=== PATIENT | female | born 1980 | race African-American/Black ===

== ENCOUNTER 2021-12-26 03:46 | Emergency (ER) | payer MEDICAID, OTHER ==
[~2021-12-26] VITALS: Ht 167.6 cm; Wt 85.0 kg
[2021-12-26 03:58] VITALS: BP 107/72
[2021-12-26] MEDS ORDERED: BACITRACIN ZINC OINT UDPKT TOP ONE (06:00)
[2021-12-26] MEDS ORDERED: TETANUS, DIPHTHERIA, PERTUSSIS VAC/PF 0.5ML (>10YR OLD) IM ONE (06:00)
[2021-12-26] MEDS ORDERED: LIDOCAINE HCL/EPINEPHRINE 1%-EPI 1:100,000 20 ML VIAL INFIL ONE (06:00)
[2021-12-26] MEDS ORDERED: HYDROCODONE/ACETAMINOPHEN 5/325MG TABLET PO ONE (06:00)
[2021-12-26] MEDS ORDERED: HYDROCODONE/ACETAMINOPHEN 5/325MG TABLET PO SCH (08:00)
[2021-12-26] MEDS ORDERED: BACITRACIN ZINC OINT UDPKT TOP SCH (08:00)
[2021-12-26] MEDS ORDERED: LIDOCAINE HCL/EPINEPHRINE 1%-EPI 1:100,000 20 ML VIAL INFIL SCH (08:00)
[2021-12-26] MEDS ORDERED: IBUP-2029 MT (08:56)
[2021-12-26] MEDS ORDERED: CEPH500C2 MT (08:56)
== END 2021-12-26 09:34 | disposition home or self-care (01) ==
LOC: ER 03:46
DX: S81.811A Laceration without foreign body, right lower leg, initial encounter (principal); X58.XXXA Exposure to other specified factors, initial encounter; Y93.89 Activity, other specified; Y92.89 Other specified places as the place of occurrence of the external cause; Y99.8 Other external cause status; F20.9 Schizophrenia, unspecified
CPT/HCPCS: 90471; 90715; 99283; J3490

== ENCOUNTER 2021-12-31 02:57 | Emergency (ER) | payer OTHER ==
[~2021-12-31] VITALS: Ht 162.6 cm; Wt 69.0 kg
[~2021-12-31 02:57] MED LIST: CEPH500C2 MT; IBUP-2029 MT
[2021-12-31] MEDS ORDERED: IBUP-2029 MT (04:59)
[2021-12-31] MEDS ORDERED: HYDROCODONE/ACETAMINOPHEN 10/325MG TABLET PO ONE (05:00)
[2021-12-31 05:33] VITALS: BP 116/78
== END 2021-12-31 05:35 | disposition home or self-care (01) ==
LOC: ER 02:57
DX: M25.462 Effusion, left knee (principal); Z98.890 Other specified postprocedural states
CPT/HCPCS: 73562; 73590; 81025; 99284

== ENCOUNTER 2022-04-20 23:11 | Emergency (ER) | payer MEDICAID, OTHER ==
[~2022-04-20] VITALS: Ht 165.1 cm; Wt 72.6 kg
[2022-04-21 06:07] LABS: BASOPHILS % 0.8 % (0.0-2.0); EOSINOPHILS % 2.1 % (0.0-5.0); HEMATOCRIT. 38.6 % (36.0-48.0); HEMOGLOBIN. 12.9 g/dL (12.0-16.0); LYMPHOCYTES % 32.8 % (20.0-50.0); MEAN CORPUSCULAR HEMOGLOBIN 29.9 pg (28.0-32.0); MEAN CORPUSCULAR VOLUME 89.3 fL (81.0-99.0); MEAN PLATELET VOLUME 8.3 fl (7.4-10.4); MONOCYTES % 7.8 % (2.0-8.0); NEUTROPHILS % 56.5 % (40.0-76.0); PLATELET 233 x1000/uL (130-400); RED BLOOD CELL COUNT 4.32 mill/uL (4.2-5.4); RED CELL DISTRIBUTION WIDTH 14.5 % (11.6-14.6)
[2022-04-21 06:18] LABS: CHLORIDE 108 mEq/L (98-107)
[2022-04-21 06:24] LABS: HCG SCREEN NEGATIVE
[2022-04-21 06:28] LABS: CLARITY URINE CLOUDY (CLEAR); COLOR URINE ORANGE (YELLOW); KETONES URINE NEGATIVE (NEGATIVE); LEUKOCYTE ESTERASE URINE 1+ (NEGATIVE); NITRITE URINE POSITIVE (NEGATIVE); OCCULT BLOOD URINE 3+ (NEGATIVE); PH URINE 5.5 (4.5-8.0); PROTEIN URINE 2+ (NEGATIVE); SPECIFIC GRAVITY URINE 1.022 (1.005-1.030)
[2022-04-21 06:33] LABS: ETHANOL BLOOD < 10 mg/dL
[2022-04-21] MEDS ORDERED: NITR100C PO (06:36)
[2022-04-21] MEDS ORDERED: IBUP-2030 PO (06:36)
[2022-04-21 06:47] LABS: *AMPHETAMINES SCREEN URINE NEGATIVE (NEGATIVE); *BARBITURATES SCREEN URINE NEGATIVE (NEGATIVE); *BENZODIAZEPINES SCREEN URINE NEGATIVE (NEGATIVE); *COCAINE SCREEN URINE NEGATIVE (NEGATIVE); METHADONE URINE SCREEN NEGATIVE (NEGATIVE); OPIATES URINE SCREEN NEGATIVE (NEGATIVE); PHENCYCLIDINE URINE SCREEN NEGATIVE (NEGATIVE)
[2022-04-21 06:51] LABS: CANNABINOID URINE SCREEN PRESUMTIVE POSITIVE (NEGATIVE)
[2022-04-21 07:01] VITALS: BP 114/75
== END 2022-04-21 07:02 | disposition home or self-care (01) ==
LOC: ER 23:11
DX: N93.9 Abnormal uterine and vaginal bleeding, unspecified (principal); N39.0 Urinary tract infection, site not specified
CPT/HCPCS: 36415; 80053; 80305; 80320; 81003; 81025; 84703; 85025; 99283; G0480

== ENCOUNTER 2022-04-26 09:20 | Emergency (ER) | payer MEDICAID, OTHER ==
[~2022-04-26] VITALS: Ht 172.7 cm; Wt 82.0 kg
[~2022-04-26 09:20] MED LIST changes: +IBUP-2030 PO; +NITR100C PO
[2022-04-26 09:25] VITALS: BP 129/78
[2022-04-26 10:18] LABS: CLARITY URINE CLEAR (CLEAR); COLOR URINE YELLOW (YELLOW); KETONES URINE NEGATIVE (NEGATIVE); LEUKOCYTE ESTERASE URINE NEGATIVE (NEGATIVE); NITRITE URINE NEGATIVE (NEGATIVE); OCCULT BLOOD URINE NEGATIVE (NEGATIVE); PH URINE 5.5 (4.5-8.0); PROTEIN URINE NEGATIVE (NEGATIVE); SPECIFIC GRAVITY URINE 1.005 (1.005-1.030); UROBILINOGEN URINE 0.2 E.U./dL (0.2-1.0)
[2022-04-26] MEDS ORDERED: METR-167 MT (10:26)
[2022-04-26] MEDS ORDERED: DOXY-326 MT (10:26)
[2022-04-26] MEDS ORDERED: CEFTRIAXONE SODIUM 500 MG/VIAL IM ONE (10:30)
[2022-04-26] MEDS ORDERED: LIDOCAINE HCL 1% 10 MG/ML 10ML VIAL INJ ONE (10:30)
[2022-04-26] MEDS ORDERED: LIDOCAINE HCL 1% 20ML VIAL (Pyxis) INJ INFIL ONE (10:30)
[2022-04-26] MEDS ORDERED: DOXYCYCLINE HYCLATE 100MG CAPSULE PO ONE (10:30)
[2022-04-28 04:07] LABS: NEISSERIA GONORRHOEAE NAA Negative (Negative)
== END 2022-04-26 10:52 | disposition home or self-care (01) ==
LOC: ER 09:20
DX: N89.8 Other specified noninflammatory disorders of vagina (principal); A64 Unspecified sexually transmitted disease; Z98.51 Tubal ligation status; Z79.899 Other long term (current) drug therapy
CPT/HCPCS: 81003; 81025; 87491; 87591; 96372; 99283; J0696

== ENCOUNTER 2022-05-18 19:01 | Emergency (ER) | payer OTHER ==
[~2022-05-18] VITALS: Ht 175.3 cm; Wt 82.0 kg
[~2022-05-18 19:01] MED LIST changes: +DOXY-326 MT; +METR-167 MT
[2022-05-18 19:47] VITALS: BP 135/71
[2022-05-19] MEDS ORDERED: ACETAMINOPHEN 325MG TABLET PO ONE (01:00)
[2022-05-19 01:15] LABS: CLARITY URINE CLOUDY (CLEAR); COLOR URINE YELLOW (YELLOW); KETONES URINE TRACE (NEGATIVE); LEUKOCYTE ESTERASE URINE NEGATIVE (NEGATIVE); NITRITE URINE POSITIVE (NEGATIVE); OCCULT BLOOD URINE TRACE (NEGATIVE); PH URINE 5.5 (4.5-8.0); PROTEIN URINE NEGATIVE (NEGATIVE); SPECIFIC GRAVITY URINE 1.026 (1.005-1.030); UROBILINOGEN URINE 0.2 E.U./dL (0.2-1.0)
[2022-05-19] MEDS ORDERED: CIPR-263 MT (02:21)
[2022-05-21 04:09] LABS: NEISSERIA GONORRHOEAE NAA Negative (Negative)
== END 2022-05-19 02:45 | disposition home or self-care (01) ==
LOC: ER 19:01
DX: N39.0 Urinary tract infection, site not specified (principal); F20.9 Schizophrenia, unspecified; Z98.51 Tubal ligation status
CPT/HCPCS: 81003; 87491; 87591; 99283

== ENCOUNTER 2022-05-29 17:35 | Emergency (ER) | payer OTHER ==
[~2022-05-29] VITALS: Ht 175.3 cm; Wt 82.0 kg
[~2022-05-29 17:35] MED LIST changes: +CIPR-263 MT
[2022-05-29 17:48] VITALS: BP 117/78
[2022-05-29] MEDS: ACETAMINOPHEN 325MG TABLET PO ONE (20:00)
== END 2022-05-29 20:20 | disposition home or self-care (01) ==
LOC: ER 17:35
DX: S89.92XA Unspecified injury of left lower leg, initial encounter (principal); X58.XXXA Exposure to other specified factors, initial encounter; Y93.89 Activity, other specified; Y92.89 Other specified places as the place of occurrence of the external cause; Y99.8 Other external cause status; E11.9 Type 2 diabetes mellitus without complications; I10 Essential (primary) hypertension; F20.9 Schizophrenia, unspecified; Z79.899 Other long term (current) drug therapy
CPT/HCPCS: 99282

== ENCOUNTER 2022-06-12 08:19 | Emergency (ER) | payer OTHER ==
[~2022-06-12] VITALS: Ht 175.3 cm; Wt 82.0 kg
[2022-06-12 08:27] VITALS: BP 111/70
[2022-06-12] MEDS ORDERED: DOXY-244 MT (09:33)
[2022-06-12] MEDS ORDERED: CEFTRIAXONE SODIUM 500 MG/VIAL IM ONE (09:45)
[2022-06-12] MEDS ORDERED: ACETAMINOPHEN 325MG TABLET PO ONE (09:45)
== END 2022-06-12 10:27 | disposition home or self-care (01) ==
LOC: ER 08:19
DX: S89.92XA Unspecified injury of left lower leg, initial encounter (principal); X58.XXXA Exposure to other specified factors, initial encounter; Y93.89 Activity, other specified; Y92.89 Other specified places as the place of occurrence of the external cause; Y99.8 Other external cause status; E11.9 Type 2 diabetes mellitus without complications; I10 Essential (primary) hypertension; F20.9 Schizophrenia, unspecified; Z87.440 Personal history of urinary (tract) infections; Z98.51 Tubal ligation status; Z79.899 Other long term (current) drug therapy
CPT/HCPCS: 81025; 96372; 99283; J0696

== ENCOUNTER 2022-06-23 03:19 | Emergency (ER) | payer OTHER ==
[~2022-06-23] VITALS: Ht 170.2 cm; Wt 69.3 kg
[~2022-06-23 03:19] MED LIST changes: +DOXY-244 MT
[2022-06-23 03:28] VITALS: BP 116/80
[2022-06-23] MEDS ORDERED: ACETAMINOPHEN 325MG TABLET PO ONE (04:15)
[2022-06-23 05:22] LABS: CLARITY URINE CLOUDY (CLEAR); COLOR URINE YELLOW (YELLOW); KETONES URINE NEGATIVE (NEGATIVE); LEUKOCYTE ESTERASE URINE NEGATIVE (NEGATIVE); NITRITE URINE POSITIVE (NEGATIVE); OCCULT BLOOD URINE 1+ (NEGATIVE); PH URINE 5.5 (4.5-8.0); PROTEIN URINE NEGATIVE (NEGATIVE); SPECIFIC GRAVITY URINE 1.026 (1.005-1.030); UROBILINOGEN URINE 0.2 E.U./dL (0.2-1.0)
[2022-06-23] MEDS ORDERED: TOPUD MT (05:32)
[2022-06-23] MEDS ORDERED: CEFP200T13 MT (05:35)
== END 2022-06-23 08:36 | disposition home or self-care (01) ==
LOC: ER 03:19
DX: Z00.00 Encounter for general adult medical examination without abnormal findings (principal); R30.0 Dysuria; E11.9 Type 2 diabetes mellitus without complications; I10 Essential (primary) hypertension; F20.9 Schizophrenia, unspecified; Z98.51 Tubal ligation status; Z87.440 Personal history of urinary (tract) infections
CPT/HCPCS: 81003; 99283

== ENCOUNTER 2022-06-25 04:12 | Emergency (ER) | payer OTHER ==
[~2022-06-25] VITALS: Ht 170.2 cm; Wt 83.2 kg
[~2022-06-25 04:12] MED LIST changes: +CEFP200T13 MT; +TOPUD MT
[2022-06-25 04:42] VITALS: BP 102/65
== END 2022-06-25 13:12 | disposition left against medical advice (07) ==
LOC: ER 04:12
DX: Z53.21 Procedure and treatment not carried out due to patient leaving prior to being seen by health care provider (principal); Z98.51 Tubal ligation status

== ENCOUNTER 2022-07-07 01:22 | Emergency (ER) | payer OTHER ==
[~2022-07-07] VITALS: Ht 175.3 cm; Wt 86.0 kg
[2022-07-07] MEDS ORDERED: ACETAMINOPHEN 325MG TABLET PO ONE (04:15)
[2022-07-07 04:40] LABS: CLARITY URINE CLEAR (CLEAR); COLOR URINE YELLOW (YELLOW); KETONES URINE NEGATIVE (NEGATIVE); LEUKOCYTE ESTERASE URINE NEGATIVE (NEGATIVE); NITRITE URINE NEGATIVE (NEGATIVE); OCCULT BLOOD URINE NEGATIVE (NEGATIVE); PROTEIN URINE NEGATIVE (NEGATIVE); SPECIFIC GRAVITY URINE 1.022 (1.005-1.030); UROBILINOGEN URINE 0.2 E.U./dL (0.2-1.0)
[2022-07-07 05:45] VITALS: BP 110/75
[2022-07-07] MEDS ORDERED: TOPUD MT (05:47)
== END 2022-07-07 05:58 | disposition home or self-care (01) ==
LOC: ER 01:22
DX: M79.671 Pain in right foot (principal); F20.9 Schizophrenia, unspecified; Z98.51 Tubal ligation status
CPT/HCPCS: 81003; 81025; 99283

== ENCOUNTER 2022-07-10 06:09 | Emergency (ER) | payer OTHER ==
[~2022-07-10] VITALS: Ht 170.2 cm; Wt 83.5 kg
[2022-07-10 06:31] VITALS: BP 112/75
[2022-07-10] MEDS ORDERED: METR-167 PO (07:45)
[2022-07-10] MEDS ORDERED: DOXY100C5 PO (07:45)
[2022-07-10] MEDS ORDERED: CEFTRIAXONE SODIUM 500 MG/VIAL IM ONE (08:00)
[2022-07-10] MEDS ORDERED: LIDOCAINE HCL 1% 20ML VIAL (Pyxis) INJ INFIL ONE (08:00)
[2022-07-10 10:39] LABS: CLARITY URINE CLEAR (CLEAR); COLOR URINE YELLOW (YELLOW); KETONES URINE NEGATIVE (NEGATIVE); LEUKOCYTE ESTERASE URINE NEGATIVE (NEGATIVE); NITRITE URINE NEGATIVE (NEGATIVE); OCCULT BLOOD URINE TRACE (NEGATIVE); PROTEIN URINE NEGATIVE (NEGATIVE); SPECIFIC GRAVITY URINE 1.017 (1.005-1.030); UROBILINOGEN URINE 0.2 E.U./dL (0.2-1.0)
== END 2022-07-10 08:35 | disposition home or self-care (01) ==
LOC: ER 06:09
DX: N89.8 Other specified noninflammatory disorders of vagina (principal); A64 Unspecified sexually transmitted disease; F12.10 Cannabis abuse, uncomplicated; Z98.51 Tubal ligation status; Z79.899 Other long term (current) drug therapy
CPT/HCPCS: 81003; 81025; 87591; 96372; 99283; J0696; J3490

== ENCOUNTER 2022-07-21 01:05 | Emergency (ER) | payer OTHER ==
[~2022-07-21] VITALS: Ht 175.3 cm; Wt 82.8 kg
[~2022-07-21 01:05] MED LIST changes: +DOXY100C5 PO; +METR-167 PO
[2022-07-21] MEDS ORDERED: AZIT250T12 MT (03:02)
[2022-07-21 03:15] VITALS: BP 124/77
== END 2022-07-21 03:16 | disposition home or self-care (01) ==
LOC: ER 01:05
DX: J18.9 Pneumonia, unspecified organism (principal); Z98.51 Tubal ligation status
CPT/HCPCS: 99281; Z7610

== ENCOUNTER 2022-07-30 19:36 | Emergency (ER) | payer OTHER ==
[~2022-07-30] VITALS: Ht 175.3 cm; Wt 75.0 kg
[~2022-07-30 19:36] MED LIST changes: +AZIT250T12 MT
[2022-07-30 19:41] VITALS: BP 126/69
[2022-07-31 01:16] LABS: CLARITY URINE CLOUDY (CLEAR); COLOR URINE YELLOW (YELLOW); KETONES URINE TRACE (NEGATIVE); LEUKOCYTE ESTERASE URINE NEGATIVE (NEGATIVE); NITRITE URINE NEGATIVE (NEGATIVE); OCCULT BLOOD URINE NEGATIVE (NEGATIVE); PROTEIN URINE NEGATIVE (NEGATIVE); SPECIFIC GRAVITY URINE 1.025 (1.005-1.030)
[2022-07-31] MEDS ORDERED: PHEN-910 PO (01:31)
[2022-07-31] MEDS ORDERED: D-ME473S50 PO (01:31)
[2022-07-31] MEDS ORDERED: NAPR-681 PO (01:36)
[2022-08-01] MEDS ORDERED: NITR-87 MT (21:24)
[2022-08-01] MEDS ORDERED: OLAN5TAB6 MT (21:24)
[2022-08-01] MEDS ORDERED: PYR200 MT (21:24)
== END 2022-07-31 01:47 | disposition home or self-care (01) ==
LOC: ER 19:36
DX: J06.9 Acute upper respiratory infection, unspecified (principal); R35.0 Frequency of micturition; Z98.51 Tubal ligation status; F12.10 Cannabis abuse, uncomplicated; Z79.899 Other long term (current) drug therapy
CPT/HCPCS: 81003; 81025; 82962; 99283

== ENCOUNTER 2022-08-01 17:18 | Emergency (ER) | payer OTHER ==
[~2022-08-01] VITALS: Ht 160 cm; Wt 80.0 kg
[~2022-08-01 17:18] MED LIST changes: +D-ME473S50 PO; +NAPR-681 PO; +PHEN-910 PO
[2022-08-01 17:32] VITALS: BP 119/73
[2022-08-01 21:22] LABS: CLARITY URINE CLEAR (CLEAR); COLOR URINE DARK YELLOW (YELLOW); KETONES URINE NEGATIVE (NEGATIVE); LEUKOCYTE ESTERASE URINE TRACE (NEGATIVE); NITRITE URINE POSITIVE (NEGATIVE); OCCULT BLOOD URINE NEGATIVE (NEGATIVE); PH URINE 6.5 (4.5-8.0); PROTEIN URINE NEGATIVE (NEGATIVE); SPECIFIC GRAVITY URINE 1.028 (1.005-1.030)
[2022-08-01] MEDS ORDERED: PYR200 MT (21:24)
[2022-08-01] MEDS ORDERED: OLAN5TAB6 MT (21:24)
[2022-08-01] MEDS ORDERED: NITR-87 MT (21:24)
[2022-08-01 21:40] LABS: *AMPHETAMINES SCREEN URINE NEGATIVE (NEGATIVE); *BARBITURATES SCREEN URINE NEGATIVE (NEGATIVE); *BENZODIAZEPINES SCREEN URINE NEGATIVE (NEGATIVE); *COCAINE SCREEN URINE NEGATIVE (NEGATIVE); METHADONE URINE SCREEN NEGATIVE (NEGATIVE); OPIATES URINE SCREEN NEGATIVE (NEGATIVE); PHENCYCLIDINE URINE SCREEN NEGATIVE (NEGATIVE)
[2022-08-01 22:08] LABS: CANNABINOID URINE SCREEN PRESUMTIVE POSITIVE (NEGATIVE)
== END 2022-08-01 21:43 | disposition home or self-care (01) ==
LOC: ER 20:08
DX: N39.0 Urinary tract infection, site not specified (principal); F20.9 Schizophrenia, unspecified; F12.10 Cannabis abuse, uncomplicated
CPT/HCPCS: 80305; 81003; 81025; 99283

== ENCOUNTER 2022-08-04 20:44 | Emergency (ER) | payer OTHER ==
[~2022-08-04] VITALS: Ht 170.2 cm; Wt 86.4 kg
[~2022-08-04 20:44] MED LIST changes: +NITR-87 MT; +OLAN5TAB6 MT; +PYR200 MT
[2022-08-04 21:19] VITALS: BP 109/60
== END 2022-08-05 03:15 | disposition left against medical advice (07) ==
LOC: ER 20:44
DX: Z53.21 Procedure and treatment not carried out due to patient leaving prior to being seen by health care provider (principal)

== ENCOUNTER 2022-08-06 16:33 | Emergency (ER) | payer OTHER ==
[~2022-08-06] VITALS: Ht 175.3 cm; Wt 82.0 kg
[2022-08-06 16:42] VITALS: BP 106/65
== END 2022-08-07 | disposition left against medical advice (07) ==
LOC: ER 16:33
DX: Z53.21 Procedure and treatment not carried out due to patient leaving prior to being seen by health care provider (principal)

== ENCOUNTER 2022-08-11 19:41 | Emergency (ER) | payer OTHER ==
[~2022-08-11] VITALS: Ht 175.3 cm; Wt 85.8 kg
[~2022-08-11 19:41] MED LIST changes: -DOXY-326 MT; +DOXY-456 MT
[2022-08-11 19:43] VITALS: BP 124/75
[2022-08-11] MEDS ORDERED: LIDOCAINE HCL 1% 20ML VIAL (Pyxis) INJ INFIL ONE (23:45)
[2022-08-11] MEDS ORDERED: CEFTRIAXONE SODIUM 500 MG/VIAL IM ONE (23:45)
[2022-08-12] MEDS ORDERED: METR-167 MT (00:50)
[2022-08-12] MEDS ORDERED: DOXY100C5 MT (00:50)
[2022-08-12] MEDS ORDERED: IBUP-2028 MT (00:50)
[2022-08-12 01:07] LABS: CLARITY URINE CLEAR (CLEAR); COLOR URINE YELLOW (YELLOW); KETONES URINE NEGATIVE (NEGATIVE); LEUKOCYTE ESTERASE URINE NEGATIVE (NEGATIVE); NITRITE URINE NEGATIVE (NEGATIVE); OCCULT BLOOD URINE NEGATIVE (NEGATIVE); PROTEIN URINE NEGATIVE (NEGATIVE); SPECIFIC GRAVITY URINE 1.017 (1.005-1.030); UROBILINOGEN URINE 0.2 E.U./dL (0.2-1.0)
[2022-08-12] MEDS ORDERED: CEFTRIAXONE SODIUM 500 MG/VIAL IM NR (01:30)
== END 2022-08-12 02:35 | disposition home or self-care (01) ==
LOC: ER 19:41
DX: M25.562 Pain in left knee (principal); N89.8 Other specified noninflammatory disorders of vagina; N72 Inflammatory disease of cervix uteri; F20.9 Schizophrenia, unspecified; Z79.899 Other long term (current) drug therapy; F12.10 Cannabis abuse, uncomplicated
CPT/HCPCS: 73562; 73590; 81003; 81025; 87210; 87491; 87591; 96372; 99284; J0696; J3490; Z7610

== ENCOUNTER 2022-08-21 19:40 | Emergency (ER) | payer OTHER ==
[~2022-08-21] VITALS: Ht 175.3 cm; Wt 110.0 kg
[~2022-08-21 19:40] MED LIST changes: +DOXY100C5 MT; +IBUP-2028 MT
[2022-08-22 06:47] VITALS: BP 125/86
== END 2022-08-22 06:53 | disposition home or self-care (01) ==
LOC: ER 19:40
DX: F20.9 Schizophrenia, unspecified (principal); R44.0 Auditory hallucinations; F12.10 Cannabis abuse, uncomplicated
CPT/HCPCS: 99281

== ENCOUNTER 2022-08-21 23:08 | Emergency (ER) | payer OTHER | END 2022-08-22 03:17 | disposition left against medical advice (07) | LOC: ER 23:08 | DX: Z53.21 Procedure and treatment not carried out due to patient leaving prior to being seen by health care provider (principal) | CPT/HCPCS: 99281 ==

== ENCOUNTER 2022-08-25 19:32 | Emergency (ER) | payer OTHER ==
[~2022-08-25] VITALS: Ht 175.3 cm; Wt 85.2 kg
[2022-08-25 20:10] VITALS: BP 107/70
== END 2022-08-26 02:08 | disposition left against medical advice (07) ==
LOC: ER 19:57
DX: R30.0 Dysuria (principal); R31.9 Hematuria, unspecified; F20.9 Schizophrenia, unspecified; F12.10 Cannabis abuse, uncomplicated; Z79.899 Other long term (current) drug therapy
CPT/HCPCS: 99281

== ENCOUNTER 2022-10-10 22:12 | Emergency (ER) | payer OTHER ==
[~2022-10-10] VITALS: Ht 175.3 cm; Wt 87.5 kg
[2022-10-10 22:52] VITALS: BP 129/82
[2022-10-11 04:49] LABS: CLARITY URINE CLOUDY (CLEAR); COLOR URINE YELLOW (YELLOW); KETONES URINE NEGATIVE (NEGATIVE); LEUKOCYTE ESTERASE URINE NEGATIVE (NEGATIVE); NITRITE URINE POSITIVE (NEGATIVE); OCCULT BLOOD URINE NEGATIVE (NEGATIVE); PH URINE 5.5 (4.5-8.0); PROTEIN URINE NEGATIVE (NEGATIVE); SPECIFIC GRAVITY URINE 1.021 (1.005-1.030); UROBILINOGEN URINE 0.2 E.U./dL (0.2-1.0)
[2022-10-11] MEDS ORDERED: CEPH500C2 MT (05:37)
== END 2022-10-11 05:59 | disposition home or self-care (01) ==
LOC: ER 23:05
DX: N39.0 Urinary tract infection, site not specified (principal); F20.9 Schizophrenia, unspecified; F12.10 Cannabis abuse, uncomplicated; Z98.51 Tubal ligation status
CPT/HCPCS: 81003; 81025; 99283

== ENCOUNTER 2022-10-13 12:08 | Emergency (ER) | payer OTHER ==
[~2022-10-13] VITALS: Ht 172.7 cm; Wt 91.0 kg
[2022-10-13 12:16] VITALS: BP 111/71
[2022-10-13] MEDS ORDERED: CEFTRIAXONE SODIUM 500 MG/VIAL IM ONE (12:45)
[2022-10-13] MEDS ORDERED: LIDOCAINE HCL 1% 20ML VIAL (Pyxis) INJ INFIL ONE (12:45)
[2022-10-13 13:05] LABS: CLARITY URINE CLEAR (CLEAR); COLOR URINE YELLOW (YELLOW); KETONES URINE NEGATIVE (NEGATIVE); LEUKOCYTE ESTERASE URINE NEGATIVE (NEGATIVE); NITRITE URINE NEGATIVE (NEGATIVE); OCCULT BLOOD URINE TRACE (NEGATIVE); PROTEIN URINE NEGATIVE (NEGATIVE); SPECIFIC GRAVITY URINE 1.019 (1.005-1.030); UROBILINOGEN URINE 0.2 E.U./dL (0.2-1.0)
[2022-10-13] MEDS ORDERED: DOXY100C5 MT (14:34)
== END 2022-10-13 14:55 | disposition home or self-care (01) ==
LOC: ER 12:08
DX: R30.0 Dysuria (principal); F20.9 Schizophrenia, unspecified; F12.10 Cannabis abuse, uncomplicated; Z98.51 Tubal ligation status
CPT/HCPCS: 81003; 81025; 87210; 96372; 99283; J0696; J3490; Z7610

== ENCOUNTER 2022-10-19 00:20 | Emergency (ER) | payer OTHER ==
[~2022-10-19] VITALS: Ht 167.6 cm; Wt 82.0 kg
[2022-10-19 00:40] VITALS: BP 114/72
[2022-10-19 00:42] LABS: BASOPHILS % 0.5 % (0.0-2.0); EOSINOPHILS % 2.3 % (0.0-5.0); HEMATOCRIT. 35.4 % (36.0-48.0); HEMOGLOBIN. 11.9 g/dL (12.0-16.0); LYMPHOCYTES % 39.2 % (20.0-50.0); MEAN CORPUSCULAR HEMOGLOBIN 29.5 pg (28.0-32.0); MEAN CORPUSCULAR VOLUME 88.2 fL (81.0-99.0); MONOCYTES % 9.1 % (2.0-8.0); NEUTROPHILS % 48.9 % (40.0-76.0); PLATELET 232 x1000/uL (130-400); RED BLOOD CELL COUNT 4.02 mill/uL (4.2-5.4); RED CELL DISTRIBUTION WIDTH 14.3 % (11.6-14.6)
[2022-10-19 00:52] LABS: CLARITY URINE CLEAR (CLEAR); COLOR URINE YELLOW (YELLOW); KETONES URINE NEGATIVE (NEGATIVE); LEUKOCYTE ESTERASE URINE NEGATIVE (NEGATIVE); NITRITE URINE NEGATIVE (NEGATIVE); OCCULT BLOOD URINE TRACE (NEGATIVE); PROTEIN URINE NEGATIVE (NEGATIVE); SPECIFIC GRAVITY URINE 1.004 (1.005-1.030); UROBILINOGEN URINE 0.2 E.U./dL (0.2-1.0)
[2022-10-19 00:55] LABS: CHLORIDE 107 mEq/L (98-107)
== END 2022-10-19 02:00 | disposition home or self-care (01) ==
LOC: ER 00:20
DX: R31.9 Hematuria, unspecified (principal); E11.9 Type 2 diabetes mellitus without complications; F20.9 Schizophrenia, unspecified; F12.90 Cannabis use, unspecified, uncomplicated
CPT/HCPCS: 36415; 80053; 81003; 81025; 85025; 99283

== ENCOUNTER 2022-10-26 17:47 | Emergency (ER) | payer OTHER ==
[~2022-10-26] VITALS: Ht 165.1 cm; Wt 100.0 kg
[2022-10-26 18:11] VITALS: BP 133/74
[2022-10-26] MEDS ORDERED: CEFTRIAXONE SODIUM 500 MG/VIAL IM ONE (22:00)
[2022-10-26] MEDS ORDERED: LIDOCAINE HCL 1% 20ML VIAL (Pyxis) INJ INFIL ONE (22:00)
[2022-10-26] MEDS ORDERED: ACETAMINOPHEN 325MG TABLET PO ONE (22:00)
[2022-10-26 22:13] LABS: CLARITY URINE CLEAR (CLEAR); COLOR URINE YELLOW (YELLOW); KETONES URINE NEGATIVE (NEGATIVE); LEUKOCYTE ESTERASE URINE NEGATIVE (NEGATIVE); NITRITE URINE NEGATIVE (NEGATIVE); OCCULT BLOOD URINE TRACE (NEGATIVE); PH URINE 5.5 (4.5-8.0); PROTEIN URINE NEGATIVE (NEGATIVE); SPECIFIC GRAVITY URINE 1.021 (1.005-1.030); UROBILINOGEN URINE 0.2 E.U./dL (0.2-1.0)
[2022-10-27] MEDS ORDERED: CEFTRIAXONE SODIUM 500 MG/VIAL IM NR (00:15)
[2022-10-27] MEDS ORDERED: LIDOCAINE HCL 1% 20ML VIAL (Pyxis) INJ INFIL NR (00:15)
[2022-10-27] MEDS ORDERED: CEFTRIAXONE SODIUM 500 MG/VIAL IM ONE (00:15)
[2022-10-27] MEDS ORDERED: ACETAMINOPHEN 325MG TABLET PO NR (00:15)
[2022-10-27] MEDS ORDERED: IBUP-2028 MT (00:21)
[2022-10-27] MEDS ORDERED: NITR-87 MT (00:21)
[2022-10-27] MEDS ORDERED: DOXY100C5 MT (00:21)
[2022-10-29 04:08] LABS: NEISSERIA GONORRHOEAE NAA Negative (Negative)
== END 2022-10-27 00:33 | disposition home or self-care (01) ==
LOC: ER 17:47
DX: N39.0 Urinary tract infection, site not specified (principal); E11.9 Type 2 diabetes mellitus without complications; F12.10 Cannabis abuse, uncomplicated; Z79.899 Other long term (current) drug therapy; Z98.51 Tubal ligation status; Z20.2 Contact with and (suspected) exposure to infections with a predominantly sexual mode of transmission
CPT/HCPCS: 81003; 81025; 87210; 87491; 87591; 96372; 99284; J0696; J3490

== ENCOUNTER 2022-11-16 17:04 | Emergency (ER) | payer MEDICAID, OTHER ==
[~2022-11-16] VITALS: Ht 172.7 cm; Wt 91.0 kg
[2022-11-16 17:33] VITALS: BP 108/62
[2022-11-16] MEDS ORDERED: CEFTRIAXONE SODIUM 500 MG/VIAL IM ONE (21:00)
[2022-11-16] MEDS ORDERED: SERT25TA MT (21:03)
[2022-11-16] MEDS ORDERED: DOXY100C5 MT (21:03)
== END 2022-11-16 21:27 | disposition home or self-care (01) ==
LOC: ER 17:04
DX: A64 Unspecified sexually transmitted disease (principal); Z86.59 Personal history of other mental and behavioral disorders
CPT/HCPCS: 96372; 99283; J0696; Z7610

== ENCOUNTER 2022-12-01 18:49 | Emergency (ER) | payer OTHER ==
[~2022-12-01] VITALS: Ht 172.7 cm; Wt 90.0 kg
[~2022-12-01 18:49] MED LIST changes: +SERT25TA MT
[2022-12-01 19:01] VITALS: BP 130/73; PULSE 88; RESP 20; TEMP 98.3; O2SAT 100
== END 2022-12-01 22:01 | disposition left against medical advice (07) ==
LOC: ER 18:49
DX: Z53.21 Procedure and treatment not carried out due to patient leaving prior to being seen by health care provider (principal)
CPT/HCPCS: 99281

== ENCOUNTER 2022-12-02 11:26 | Emergency (ER) | payer OTHER ==
[~2022-12-02] VITALS: Ht 175.3 cm; Wt 82.0 kg
[2022-12-02 11:40] VITALS: BP 106/68; PULSE 95; RESP 16; TEMP 98.6; O2SAT 99
[2022-12-02] MEDS ORDERED: CEFTRIAXONE SODIUM 250 MG/VIAL IM ONE (14:15)
== END 2022-12-02 18:45 | disposition left against medical advice (07) ==
LOC: ER 11:26
DX: N89.8 Other specified noninflammatory disorders of vagina (principal); E11.9 Type 2 diabetes mellitus without complications; Z79.899 Other long term (current) drug therapy; Z98.890 Other specified postprocedural states; Z86.59 Personal history of other mental and behavioral disorders
CPT/HCPCS: 99283; 96372; J0696

== ENCOUNTER 2022-12-06 05:30 | Emergency (ER) | payer OTHER ==
[~2022-12-06] VITALS: Ht 172.7 cm; Wt 90.7 kg
[2022-12-06 05:52] VITALS: O2SAT 99
[2022-12-06] MEDS ORDERED: DOXY-244 MT (06:29)
[2022-12-06] MEDS ORDERED: METR-167 MT (06:29)
[2022-12-06 06:45] VITALS: BP 120/80; PULSE 61; RESP 12; TEMP 98.4
== END 2022-12-06 06:50 | disposition home or self-care (01) ==
LOC: ER 05:30
DX: Z11.3 Encounter for screening for infections with a predominantly sexual mode of transmission (principal); Z79.899 Other long term (current) drug therapy
CPT/HCPCS: 99283

== ENCOUNTER 2023-01-04 09:58 | Emergency (ER) | payer OTHER ==
[~2023-01-04] VITALS: Ht 167.6 cm; Wt 86.0 kg
[2023-01-04 10:30] VITALS: O2SAT 100
[2023-01-04 11:22] LABS: CLARITY URINE CLOUDY (CLEAR); COLOR URINE YELLOW (YELLOW); GLUCOSE URINE NEGATIVE (NEGATIVE); KETONES URINE NEGATIVE (NEGATIVE); LEUKOCYTE ESTERASE URINE NEGATIVE (NEGATIVE); NITRITE URINE NEGATIVE (NEGATIVE); OCCULT BLOOD URINE 2+ (NEGATIVE); PH URINE 5.5 (4.5-8.0); PROTEIN URINE NEGATIVE (NEGATIVE); UROBILINOGEN URINE 0.2 E.U./dL (0.2-1.0)
[2023-01-04 11:29] LABS: BACTERIA URINE 1+; SQUAMOUS EPITHELIAL CELL URINE 3+ /lpf (RARE/1+); YEAST URINE NONE SEEN
[2023-01-04 12:42] VITALS: BP 112/66; PULSE 68; RESP 20; TEMP 98.3
== END 2023-01-04 12:45 | disposition home or self-care (01) ==
LOC: ER 10:05
DX: N93.9 Abnormal uterine and vaginal bleeding, unspecified (principal); E11.9 Type 2 diabetes mellitus without complications; F12.10 Cannabis abuse, uncomplicated; Z79.899 Other long term (current) drug therapy; Z86.59 Personal history of other mental and behavioral disorders; Z98.51 Tubal ligation status
CPT/HCPCS: 81003; 81025; 99283

== ENCOUNTER 2023-08-29 04:58 | Emergency (ER) | payer OTHER ==
[~2023-08-29] VITALS: Ht 170.2 cm; Wt 83.0 kg
[2023-08-29 05:17] VITALS: PULSE 74; TEMP 98.5; O2SAT 99
[2023-08-29 05:18] VITALS: BP 123/77; RESP 18
[2023-08-29] MEDS ORDERED: METR70GE5 VG (12:17)
== END 2023-08-29 05:36 | disposition left against medical advice (07) ==
LOC: ER 04:58
DX: N93.9 Abnormal uterine and vaginal bleeding, unspecified (principal); Z53.21 Procedure and treatment not carried out due to patient leaving prior to being seen by health care provider
CPT/HCPCS: 99281

== ENCOUNTER 2023-08-29 06:02 | Emergency (ER) | payer OTHER ==
[~2023-08-29] VITALS: Ht 167.6 cm; Wt 82.0 kg
[2023-08-29 06:08] VITALS: O2SAT 98
[2023-08-29 08:36] LABS: CLARITY URINE CLEAR (CLEAR); COLOR URINE YELLOW (YELLOW); GLUCOSE URINE NEGATIVE (NEGATIVE); KETONES URINE NEGATIVE (NEGATIVE); LEUKOCYTE ESTERASE URINE TRACE (NEGATIVE); NITRITE URINE NEGATIVE (NEGATIVE); OCCULT BLOOD URINE NEGATIVE (NEGATIVE); PROTEIN URINE NEGATIVE (NEGATIVE); SPECIFIC GRAVITY URINE 1.021 (1.005-1.030); UROBILINOGEN URINE 0.2 E.U./dL (0.2-1.0)
[2023-08-29 09:02] LABS: SQUAMOUS EPITHELIAL CELL URINE 3+ /lpf (RARE/1+)
[2023-08-29 09:07] LABS: BACTERIA URINE TRACE; RBC URINE NONE SEEN /hpf (0-2)
[2023-08-29] MEDS ORDERED: METR70GE5 VG (12:17)
[2023-08-29 12:39] VITALS: BP 126/77; PULSE 60; RESP 19; TEMP 98
[2023-08-31 04:09] LABS: CHLAMYDIA TRACHOMATIS NAA Negative (Negative); NEISSERIA GONORRHOEAE NAA Negative (Negative)
== END 2023-08-29 12:48 | disposition home or self-care (01) ==
LOC: ER 06:02
DX: N76.0 Acute vaginitis (principal); F12.10 Cannabis abuse, uncomplicated; Z79.899 Other long term (current) drug therapy
CPT/HCPCS: 81003; 81025; 87210; 87491; 87591; 99284

== ENCOUNTER 2023-09-09 08:27 | Emergency (ER) | payer OTHER ==
[~2023-09-09] VITALS: Ht 172.7 cm; Wt 91.0 kg
[~2023-09-09 08:27] MED LIST changes: +METR70GE5 VG
[2023-09-09 08:36] VITALS: O2SAT 99
[2023-09-09] MEDS ORDERED: METR-167 MT (10:32)
[2023-09-09 10:44] VITALS: BP 112/66; PULSE 71; RESP 18; TEMP 98.5
== END 2023-09-09 10:47 | disposition home or self-care (01) ==
LOC: ER 08:27
DX: N76.0 Acute vaginitis (principal); F12.10 Cannabis abuse, uncomplicated; Z79.899 Other long term (current) drug therapy
CPT/HCPCS: 99281

== ENCOUNTER 2023-10-15 04:23 | Emergency (ER) | payer OTHER ==
[~2023-10-15] VITALS: Ht 165.1 cm; Wt 82.0 kg
[2023-10-15 04:58] VITALS: BP 109/63; PULSE 75; TEMP 98.2; O2SAT 98
[2023-10-15 05:20] LABS: CLARITY URINE CLEAR (CLEAR); COLOR URINE YELLOW (YELLOW); GLUCOSE URINE NEGATIVE (NEGATIVE); KETONES URINE NEGATIVE (NEGATIVE); LEUKOCYTE ESTERASE URINE TRACE (NEGATIVE); NITRITE URINE NEGATIVE (NEGATIVE); OCCULT BLOOD URINE NEGATIVE (NEGATIVE); PH URINE 5.5 (4.5-8.0); PROTEIN URINE NEGATIVE (NEGATIVE); SPECIFIC GRAVITY URINE 1.011 (1.005-1.030); UROBILINOGEN URINE 0.2 E.U./dL (0.2-1.0)
[2023-10-15 07:00] LABS: SQUAMOUS EPITHELIAL CELL URINE 1+ /lpf (RARE/1+)
[2023-10-15 07:02] LABS: BACTERIA URINE 1+; RBC URINE NONE SEEN /hpf (0-2); WBC URINE 0-2 /hpf (0-2)
[2023-10-15 07:30] VITALS: RESP 19
[2023-10-15] MEDS ORDERED: CEPH500C2 MT (07:30)
[2023-10-15] MEDS ORDERED: PHEN-910 MT (07:30)
== END 2023-10-15 07:51 | disposition home or self-care (01) ==
LOC: ER 04:52
DX: R30.0 Dysuria (principal); N30.00 Acute cystitis without hematuria; R35.0 Frequency of micturition; F41.9 Anxiety disorder, unspecified; F32.9 Major depressive disorder, single episode, unspecified; F20.9 Schizophrenia, unspecified; F12.10 Cannabis abuse, uncomplicated
CPT/HCPCS: 81003; 81025; 99283

== ENCOUNTER 2023-11-03 09:59 | Emergency (ER) | payer MEDICAID, OTHER ==
[~2023-11-03] VITALS: Ht 170.2 cm; Wt 85.0 kg
[~2023-11-03 09:59] MED LIST changes: +PHEN-910 MT
[2023-11-03 10:06] VITALS: O2SAT 100
[2023-11-03 11:13] LABS: CHLORIDE 106 mEq/L (98-107); POTASSIUM 3.9 mEq/L (3.5-5.1); SODIUM 139 mEq/L (136-145)
[2023-11-03 11:14] LABS: CALCIUM 9.3 mg/dL (8.7-10.4); CARBON DIOXIDE 25 mEq/L (21-32)
[2023-11-03 11:16] LABS: BASOPHILS % 0.7 % (0.0-2.0); HEMATOCRIT. 36.8 % (36.0-48.0); HEMOGLOBIN. 12.5 g/dL (12.0-16.0); LYMPHOCYTES % 33.4 % (20.0-50.0); MEAN CORPUSCULAR HEMOGLOBIN 30.9 pg (28.0-32.0); MEAN CORPUSCULAR VOLUME 90.9 fL (81.0-99.0); MEAN PLATELET VOLUME 8.5 fl (7.4-10.4); MONOCYTES % 6.3 % (2.0-8.0); NEUTROPHILS % 56.6 % (40.0-76.0); PLATELET 252 x1000/uL (130-400); RED BLOOD CELL COUNT 4.05 mill/uL (4.2-5.4); RED CELL DISTRIBUTION WIDTH 15.3 % (11.6-14.6); WHITE BLOOD COUNT 6.8 x1000/uL (4.5-11.0)
[2023-11-03 11:19] LABS: CREATININE 0.8 mg/dL (0.6-1.0); GLUCOSE 107 mg/dL (70-105); UREA NITROGEN BLOOD 11 mg/dL (9-23)
[2023-11-03 11:32] LABS: HCG SCREEN NEGATIVE
[2023-11-03 13:35] LABS: CLARITY URINE CLOUDY (CLEAR); COLOR URINE YELLOW (YELLOW); GLUCOSE URINE NEGATIVE (NEGATIVE); KETONES URINE NEGATIVE (NEGATIVE); LEUKOCYTE ESTERASE URINE TRACE (NEGATIVE); NITRITE URINE NEGATIVE (NEGATIVE); OCCULT BLOOD URINE 1+ (NEGATIVE); PH URINE 5.5 (4.5-8.0); PROTEIN URINE NEGATIVE (NEGATIVE); SPECIFIC GRAVITY URINE 1.026 (1.005-1.030); UROBILINOGEN URINE 0.2 E.U./dL (0.2-1.0)
[2023-11-03] MEDS ORDERED: SULF1TAB48 MT (13:50)
[2023-11-03 13:58] LABS: MUCUS URINE 1+ /lpf (< = 2+); SQUAMOUS EPITHELIAL CELL URINE 3+ /lpf (RARE/1+)
[2023-11-03 14:01] LABS: RBC URINE 0-2 /hpf (0-2)
[2023-11-03 14:02] LABS: BACTERIA URINE 3+
[2023-11-03 14:30] VITALS: BP 115/67; PULSE 83; RESP 19; TEMP 97.9
== END 2023-11-03 15:25 | disposition home or self-care (01) ==
LOC: ER 09:59
DX: N39.0 Urinary tract infection, site not specified (principal)
CPT/HCPCS: 36415; 74176; 80048; 81003; 84703; 85025; 99284

== ENCOUNTER 2023-12-03 12:02 | Emergency (ER) | payer OTHER ==
[~2023-12-03] VITALS: Ht 167.6 cm; Wt 87.0 kg
[~2023-12-03 12:02] MED LIST changes: +SULF1TAB48 MT
[2023-12-03 12:20] VITALS: O2SAT 98
[2023-12-03 13:28] LABS: CLARITY URINE CLEAR (CLEAR); COLOR URINE YELLOW (YELLOW); GLUCOSE URINE NEGATIVE (NEGATIVE); KETONES URINE NEGATIVE (NEGATIVE); LEUKOCYTE ESTERASE URINE NEGATIVE (NEGATIVE); NITRITE URINE NEGATIVE (NEGATIVE); OCCULT BLOOD URINE 1+ (NEGATIVE); PH URINE 5.5 (4.5-8.0); PROTEIN URINE NEGATIVE (NEGATIVE); SPECIFIC GRAVITY URINE 1.033 (1.005-1.030)
[2023-12-03 13:57] LABS: BACTERIA URINE FEW; RBC URINE 0-2 /hpf (0-2); SQUAMOUS EPITHELIAL CELL URINE FEW /lpf (RARE/1+); YEAST URINE NONE SEEN
[2023-12-03] MEDS: LIDOCAINE HCL 1% 20ML VIAL (Pyxis) INJ INFIL ONE (18:24)
[2023-12-03] MEDS: DOXYCYCLINE HYCLATE 100MG CAPSULE PO NR (18:24)
[2023-12-03] MEDS: CEFTRIAXONE SODIUM 1G VIAL IM NR (18:24)
[2023-12-03] MEDS ORDERED: DOXY100C5 MT (18:54)
[2023-12-03] MEDS ORDERED: METR-167 MT (18:54)
[2023-12-03 19:23] VITALS: BP 107/63; PULSE 63; RESP 18; TEMP 98
== END 2023-12-03 19:24 | disposition home or self-care (01) ==
LOC: ER 12:09
DX: R30.0 Dysuria (principal); F41.9 Anxiety disorder, unspecified; F32.9 Major depressive disorder, single episode, unspecified; F20.9 Schizophrenia, unspecified; F12.10 Cannabis abuse, uncomplicated; Z98.51 Tubal ligation status; Z79.899 Other long term (current) drug therapy
CPT/HCPCS: 99283; 81003; 81025; 96372; J0696

== ENCOUNTER 2024-02-21 11:20 | Emergency (ER) | payer OTHER ==
[~2024-02-21] VITALS: Ht 167.6 cm; Wt 84.0 kg
[~2024-02-21 11:20] MED LIST changes: -DOXY-456 MT; +DOXY100C74 MT; +METR70GE27 VG; -METR70GE5 VG
[2024-02-21 11:34] VITALS: O2SAT 98
[2024-02-21 12:33] LABS: CLARITY URINE CLOUDY (CLEAR); COLOR URINE YELLOW (YELLOW); GLUCOSE URINE NEGATIVE (NEGATIVE); KETONES URINE NEGATIVE (NEGATIVE); LEUKOCYTE ESTERASE URINE 1+ (NEGATIVE); NITRITE URINE NEGATIVE (NEGATIVE); OCCULT BLOOD URINE 2+ (NEGATIVE); PROTEIN URINE NEGATIVE (NEGATIVE); SPECIFIC GRAVITY URINE 1.026 (1.005-1.030); UROBILINOGEN URINE 0.2 E.U./dL (0.2-1.0)
[2024-02-21 13:33] LABS: SQUAMOUS EPITHELIAL CELL URINE 1+ /lpf (RARE/1+)
[2024-02-21 13:35] LABS: BACTERIA URINE 2+; YEAST URINE NONE SEEN
[2024-02-21] MEDS ORDERED: CEFP200T14 MT (13:37)
[2024-02-21] MEDS ORDERED: PYR200 MT (13:37)
[2024-02-21 13:55] VITALS: BP 119/73; PULSE 78; RESP 18; TEMP 36.89184; O2SAT 98
== END 2024-02-21 14:01 | disposition home or self-care (01) ==
LOC: ER 11:20
DX: N39.0 Urinary tract infection, site not specified (principal); F41.9 Anxiety disorder, unspecified; F32.A Depression, unspecified; F12.10 Cannabis abuse, uncomplicated; Z79.899 Other long term (current) drug therapy; Z98.51 Tubal ligation status; Z86.59 Personal history of other mental and behavioral disorders
CPT/HCPCS: 81003; 81025; 87077; 87186; 99283

== ENCOUNTER 2024-03-03 07:00 | Emergency (ER) | payer OTHER ==
[~2024-03-03] VITALS: Ht 165.1 cm; Wt 80.0 kg
[~2024-03-03 07:00] MED LIST changes: +CEFP200T14 MT
[2024-03-03 07:13] VITALS: O2SAT 96
[2024-03-03 08:45] LABS: CLARITY URINE CLOUDY (CLEAR); COLOR URINE YELLOW (YELLOW); GLUCOSE URINE NEGATIVE (NEGATIVE); KETONES URINE NEGATIVE (NEGATIVE); LEUKOCYTE ESTERASE URINE NEGATIVE (NEGATIVE); NITRITE URINE NEGATIVE (NEGATIVE); OCCULT BLOOD URINE TRACE (NEGATIVE); PH URINE 5.5 (4.5-8.0); PROTEIN URINE NEGATIVE (NEGATIVE); SPECIFIC GRAVITY URINE 1.024 (1.005-1.030); UROBILINOGEN URINE 0.2 E.U./dL (0.2-1.0)
[2024-03-03 08:59] LABS: BACTERIA URINE 1+; SQUAMOUS EPITHELIAL CELL URINE 3+ /lpf (RARE/1+)
[2024-03-03 09:00] LABS: RBC URINE 0-2 /hpf (0-2)
[2024-03-03] MEDS ORDERED: PHEN-910 MT (09:37)
[2024-03-03 09:47] VITALS: BP 114/70; PULSE 66; RESP 16; TEMP 36.61404; O2SAT 96
== END 2024-03-03 09:48 | disposition home or self-care (01) ==
LOC: ER 07:22
DX: R35.0 Frequency of micturition (principal); F41.9 Anxiety disorder, unspecified; F32.A Depression, unspecified; Z79.899 Other long term (current) drug therapy; Z98.51 Tubal ligation status
CPT/HCPCS: 81003; 81025; 99283

== ENCOUNTER 2024-03-13 13:49 | Emergency (ER) | payer OTHER ==
[~2024-03-13] VITALS: Ht 172.7 cm; Wt 100.0 kg
[2024-03-13 13:54] VITALS: O2SAT 98
[2024-03-13 14:18] VITALS: BP 118/77; PULSE 88; RESP 18; TEMP 98.4; O2SAT 98
[2024-03-13 17:07] LABS: CLARITY URINE CLEAR (CLEAR); COLOR URINE YELLOW (YELLOW); GLUCOSE URINE NEGATIVE (NEGATIVE); KETONES URINE TRACE (NEGATIVE); NITRITE URINE NEGATIVE (NEGATIVE); OCCULT BLOOD URINE TRACE (NEGATIVE); PH URINE 5.5 (4.5-8.0); PROTEIN URINE NEGATIVE (NEGATIVE); SPECIFIC GRAVITY URINE 1.033 (1.005-1.030)
[2024-03-13 17:08] LABS: LEUKOCYTE ESTERASE URINE TRACE (NEGATIVE)
[2024-03-13 17:29] LABS: BACTERIA URINE 1+
[2024-03-13 17:31] LABS: SQUAMOUS EPITHELIAL CELL URINE 1+ /lpf (RARE/1+)
[2024-03-13] MEDS ORDERED: NITR100C PO (17:36)
[2024-03-13] MEDS ORDERED: DOXY-244 MT (17:36)
[2024-03-13] MEDS ORDERED: HYDR28CR97 TP (17:39)
[2024-03-13] MEDS: CEFTRIAXONE SODIUM 500MG VIAL IM ONE (18:12)
[2024-03-13] MEDS: LIDOCAINE HCL/PF 1% 10 MG/ML 5ML VIAL INFIL ONE (18:13)
[2024-03-16 04:13] LABS: CHLAMYDIA TRACHOMATIS NAA Negative (Negative); NEISSERIA GONORRHOEAE NAA Negative (Negative)
== END 2024-03-13 18:19 | disposition home or self-care (01) ==
LOC: ER 13:55
DX: N39.0 Urinary tract infection, site not specified (principal); F12.90 Cannabis use, unspecified, uncomplicated; F41.9 Anxiety disorder, unspecified; F20.9 Schizophrenia, unspecified; E11.9 Type 2 diabetes mellitus without complications; Z11.3 Encounter for screening for infections with a predominantly sexual mode of transmission; Z98.51 Tubal ligation status; Z79.899 Other long term (current) drug therapy
CPT/HCPCS: 87491; 87591; 81003; 81025; 86592; 87210; 96372; 99284; J0696; J3490; Z7610

== ENCOUNTER 2024-04-06 13:21 | Emergency (ER) | payer OTHER ==
[~2024-04-06] VITALS: Ht 167.6 cm; Wt 80.0 kg
[~2024-04-06 13:21] MED LIST changes: +HYDR28CR97 TP
[2024-04-06 13:24] VITALS: O2SAT 99
[2024-04-06 13:26] VITALS: BP 134/65; PULSE 88; RESP 16; TEMP 97.8; O2SAT 99
[2024-04-06] MEDS ORDERED: METR-167 MT (14:09)
[2024-04-06] MEDS ORDERED: FLUC150T46 MT (14:10)
[2024-04-06] MEDS: CEFTRIAXONE SODIUM 500MG VIAL IM ONE (14:35)
[2024-04-06 14:44] LABS: CLARITY URINE CLEAR (CLEAR); COLOR URINE YELLOW (YELLOW); GLUCOSE URINE NEGATIVE (NEGATIVE); KETONES URINE NEGATIVE (NEGATIVE); LEUKOCYTE ESTERASE URINE NEGATIVE (NEGATIVE); NITRITE URINE NEGATIVE (NEGATIVE); OCCULT BLOOD URINE NEGATIVE (NEGATIVE); PROTEIN URINE NEGATIVE (NEGATIVE); SPECIFIC GRAVITY URINE 1.021 (1.005-1.030)
[2024-04-10 04:08] LABS: CHLAMYDIA TRACHOMATIS NAA Negative (Negative); NEISSERIA GONORRHOEAE NAA Negative (Negative)
== END 2024-04-06 15:13 | disposition home or self-care (01) ==
LOC: ER 13:27
DX: N76.0 Acute vaginitis (principal); F41.9 Anxiety disorder, unspecified; F32.A Depression, unspecified; E11.9 Type 2 diabetes mellitus without complications; F12.10 Cannabis abuse, uncomplicated; F20.9 Schizophrenia, unspecified; Z98.51 Tubal ligation status; Z87.440 Personal history of urinary (tract) infections; Z79.899 Other long term (current) drug therapy; Z79.1 Long term (current) use of non-steroidal anti-inflammatories (NSAID)
CPT/HCPCS: 87491; 87591; 81003; 96372; 99283; J0696; Z7610 ×2

== ENCOUNTER 2024-05-24 17:09 | Emergency (ER) | payer OTHER ==
[~2024-05-24] VITALS: Ht 170.2 cm; Wt 100.0 kg
[~2024-05-24 17:09] MED LIST changes: +FLUC150T46 MT
[2024-05-24 17:19] VITALS: TEMP 36.78072; O2SAT 96
[2024-05-24] MEDS ORDERED: METR-167 MT (20:04)
[2024-05-24] MEDS ORDERED: DOXY100C5 MT (20:04)
[2024-05-24] MEDS: CEFTRIAXONE SODIUM 500MG VIAL IM ONE (20:36)
[2024-05-24 20:43] VITALS: BP 132/84; PULSE 87; RESP 18; O2SAT 100
== END 2024-05-24 20:47 | disposition home or self-care (01) ==
LOC: ER 17:09
DX: N89.8 Other specified noninflammatory disorders of vagina (principal); F20.9 Schizophrenia, unspecified; E11.9 Type 2 diabetes mellitus without complications; F32.A Depression, unspecified; F41.9 Anxiety disorder, unspecified; F12.10 Cannabis abuse, uncomplicated; Z98.51 Tubal ligation status; Z79.899 Other long term (current) drug therapy; Z79.1 Long term (current) use of non-steroidal anti-inflammatories (NSAID)
CPT/HCPCS: 96372; 99283; J0696; Z7610

== ENCOUNTER 2024-06-30 03:41 | Emergency (ER) | payer OTHER ==
[~2024-06-30] VITALS: Ht 167.6 cm; Wt 82.1 kg
[2024-06-30 03:48] VITALS: O2SAT 99
[2024-06-30 04:06] VITALS: BP 114/67; PULSE 81; RESP 16; TEMP 98.7; O2SAT 98
[2024-06-30 05:13] LABS: CLARITY URINE CLEAR (CLEAR); COLOR URINE YELLOW (YELLOW); GLUCOSE URINE NEGATIVE (NEGATIVE); KETONES URINE NEGATIVE (NEGATIVE); LEUKOCYTE ESTERASE URINE NEGATIVE (NEGATIVE); NITRITE URINE NEGATIVE (NEGATIVE); OCCULT BLOOD URINE TRACE (NEGATIVE); PH URINE 5.5 (4.5-8.0); PROTEIN URINE NEGATIVE (NEGATIVE); SPECIFIC GRAVITY URINE 1.008 (1.005-1.030); UROBILINOGEN URINE 0.2 E.U./dL (0.2-1.0)
[2024-06-30] MEDS ORDERED: GUAI600T26 MT (05:21)
[2024-06-30 06:38] LABS: SQUAMOUS EPITHELIAL CELL URINE 1+ /lpf (RARE/1+)
[2024-06-30 06:39] LABS: RBC URINE NONE SEEN /hpf (0-2); WBC URINE 0-2 /hpf (0-2)
[2024-06-30 06:40] LABS: BACTERIA URINE NONE SEEN
== END 2024-06-30 05:26 | disposition home or self-care (01) ==
LOC: ER 03:41
DX: R05.9 Cough, unspecified (principal); E11.9 Type 2 diabetes mellitus without complications; F20.9 Schizophrenia, unspecified; F41.9 Anxiety disorder, unspecified; F12.90 Cannabis use, unspecified, uncomplicated; Z79.899 Other long term (current) drug therapy; Z98.51 Tubal ligation status
CPT/HCPCS: 81003; 81025; 99283